=== PATIENT | female | born 1950 | race Caucasian/White ===

== ENCOUNTER → 2020-02-16 | Outpatient (CLI) | payer MEDICARE ==
[~2020-02-16] MED LIST: ALPR0.25 PO; HYDROCHLOROTH12.5 MG PO; INDO50CA15 PO; LOSA50TA14 PO; OXYC-302 PO
== END | disposition home or self-care (01) ==
LOC: ROC 07:51
PROVIDERS: ATTEND Radiology Radiation Oncology
DX: C79.31 Secondary malignant neoplasm of brain (principal); Z85.42 Personal history of malignant neoplasm of other parts of uterus
CPT/HCPCS: 99214; G0463

== ENCOUNTER 2020-02-18 06:11 | Day surgery (SDC) | payer MEDICARE ==
[~2020-02-18] VITALS: Ht 154.9 cm; Wt 96.1 kg
[2020-02-18 07:22] VITALS: BP 136/82
[2020-02-18] MEDS ORDERED: SODIUM CHLORIDE 0.9% 1,000 ML IV SCH (07:30)
[2020-02-18] MEDS ORDERED: FENTANYL PF 100 MCG/2ML ONE (07:52)
[2020-02-18] MEDS ORDERED: MIDAZOLAM 1 MG/ML, 5ML ONE (07:52)
[2020-02-18] MEDS ORDERED: NALOXONE 1 MG/ML, 2ML ONE (07:52)
[2020-02-18] MEDS ORDERED: FLUMAZENIL 0.1 MG/1 ML, 5ML ONE (07:52)
== END 2020-02-18 09:45 | disposition home or self-care (01) ==
LOC: OUT 06:11
PROVIDERS: ATTEND Radiology Radiation Oncology
DX: C41.4 Malignant neoplasm of pelvic bones, sacrum and coccyx (principal); I10 Essential (primary) hypertension; F32.9 Major depressive disorder, single episode, unspecified; G47.00 Insomnia, unspecified; D50.9 Iron deficiency anemia, unspecified; M19.90 Unspecified osteoarthritis, unspecified site; E66.9 Obesity, unspecified; Z68.41 Body mass index [BMI] 40.0-44.9, adult; Z85.42 Personal history of malignant neoplasm of other parts of uterus; Z88.0 Allergy status to penicillin; Z90.710 Acquired absence of both cervix and uterus; Z85.841 Personal history of malignant neoplasm of brain; Z98.890 Other specified postprocedural states; Z79.899 Other long term (current) drug therapy
CPT/HCPCS: 20220; 77012; 88307; 88311; 88333; 99156; 99157; J2250; J3010; J2310

== ENCOUNTER → 2020-02-25 | Outpatient (CLI) | payer MEDICARE ==
[~2020-02-25] MED LIST changes: +GADOTERATE 10 MMOL/20 ML SYR ONE
== END | disposition home or self-care (01) ==
LOC: CFH 11:51
PROVIDERS: ATTEND Radiology Radiation Oncology
DX: C79.31 Secondary malignant neoplasm of brain (principal); R22.0 Localized swelling, mass and lump, head
CPT/HCPCS: 70553; A9575

== ENCOUNTER → 2020-04-21 | Outpatient (CLI) | payer MEDICARE | END | disposition home or self-care (01) | LOC: CFH 13:07 | PROVIDERS: ATTEND Radiology Radiation Oncology | DX: C79.31 Secondary malignant neoplasm of brain (principal) | CPT/HCPCS: 70553; A9575 ==

== ENCOUNTER → 2020-04-26 | Outpatient (CLI) | payer MEDICARE ==
[~2020-04-26] MED LIST changes: +AMLO-211 PO; -GADOTERATE 10 MMOL/20 ML SYR ONE; +LEVE500T8 PO; +LOSA100T14 PO; +OXYC10TA6 PO; +OXYC20TA42 PO
== END | disposition home or self-care (01) ==
LOC: ROC 09:20
PROVIDERS: ATTEND Radiology Radiation Oncology
DX: C79.31 Secondary malignant neoplasm of brain (principal); I10 Essential (primary) hypertension; F32.9 Major depressive disorder, single episode, unspecified; M19.90 Unspecified osteoarthritis, unspecified site; E66.9 Obesity, unspecified; Z68.41 Body mass index [BMI] 40.0-44.9, adult; Z85.42 Personal history of malignant neoplasm of other parts of uterus; Z87.891 Personal history of nicotine dependence; Z90.710 Acquired absence of both cervix and uterus
CPT/HCPCS: 99213; G0463

== ENCOUNTER → 2020-04-27 | Outpatient (CLI) | payer MEDICARE ==
[~2020-04-27] MED LIST changes: -AMLO-211 PO; -LEVE500T8 PO; +LIDOCAINE-MPF 1%, 5ML ONE; -LOSA100T14 PO; -OXYC10TA6 PO; -OXYC20TA42 PO
== END | disposition home or self-care (01) ==
LOC: RAD 14:11
PROVIDERS: ATTEND Radiology Radiation Oncology
DX: C79.51 Secondary malignant neoplasm of bone (principal); R60.0 Localized edema
CPT/HCPCS: 93970